=== PATIENT | male | born 1985 | race Caucasian/White ===

== ENCOUNTER 2023-06-08 15:16 | Emergency (ER) | payer OTHER, SELFPAY | END 2023-06-08 19:05 | disposition left against medical advice (07) | PROVIDERS: Emergency Provider Emergency Medicine | DX: S69.92XA Unspecified injury of left wrist, hand and finger(s), initial encounter (principal); X58.XXXA Exposure to other specified factors, initial encounter; Y93.9 Activity, unspecified; Y92.9 Unspecified place or not applicable; Y99.9 Unspecified external cause status ==

== ENCOUNTER 2023-09-28 14:30 | Emergency (ER) | payer OTHER, SELFPAY ==
--- NOTE | ~2023-09-28 | CT_ITS ---
EXAMINATION: CT head/brain wo IV con CT facial bones wo IV con INDICATION INFORMATION: ?sinusitis, intractable R sided headache COMPARISON: None TECHNIQUE: Separate noncontrast CT examinations of the head and maxillofacial bones were performed. Coronal and sagittal images were created for each examination at the technologist workstation. This CT examination was performed using dose optimization techniques as appropriate, variously including the following: * Automated exposure control * Adjustment of mA and/or kV according to patient size (this includes techniques or standardized protocols for targeted exams where dose is matched to indication/reason for exam; i.e. extremities or head) Use of iterative reconstruction technique DLP: 880.27 mGy-cm FINDINGS: HEAD: There is no evidence of acute intracranial hemorrhage or territorial infarction. No abnormal mass-effect or midline shift is seen. Bishop to white matter differentiation is well preserved. No extra-axial fluid collections are identified. No hydrocephalus. No significant volume loss. There is no abnormal attenuation within the brain parenchyma. No acute soft tissue abnormality. No calvarial fracture. The mastoid air cells are well aerated. Small volume cerumen in bilateral external auditory canals. MAXILLOFACIAL: No acute maxillofacial fractures are seen. The mandible, maxilla, pterygoid plates, nasal bones, zygomatic arches, paranasal sinus cho, and bony orbits are intact. The frontal, maxillary, ethmoid, and sphenoid sinuses are well aerated. Periapical lucency along the left maxillary second premolar tooth. The uncinate process is normal bilaterally. The infundibula and middle meati are patent. There is a rightward nasal septal deviation. The mandibular heads are well-seated in the condylar fossa. The orbits demonstrate a normal appearance bilaterally. The globes are intact, and there are no suspicious findings to suggest retrobulbar hemorrhage. CT/CT facial bones wo IV con IMPRESSION: 1. No acute intracranial hemorrhage or territorial infarction. No intracranial masses. 2. Periapical lucency along the left maxillary second premolar tooth which could represent a periapical abscess in the appropriate clinical setting.
--- NOTE | ~2023-09-28 | XR_ITS ---
EXAMINATION: CHEST 2 VIEWS CLINICAL INFORMATION: cough. COMPARISON: 07/17/2016. TECHNIQUE: PA and lateral views of the chest obtained. FINDINGS: The lungs are well expanded. No focal infiltrate, effusion, edema, or pneumothorax. Chain staple line in the lateral right upper lobe. Cardiac and mediastinal silhouettes are within normal limits for technique. No acute bony abnormality seen XR/XR chest 2V IMPRESSION: No evidence of acute disease.
[2023-09-28 15:21] VITALS: BP 107/64; PULSE 96; RESP 18; TEMP 37.4; O2SAT 96; BMI 19.4
--- NOTE | 2023-09-28 15:23 | ED.GENADULT ---
HPI - General Adult General Chief complaint: Upper Respiratory Symptoms Stated complaint: Sore throat/Headache/Fever Time Seen by Provider: 09/28/23 16:58 Source: patient, RN notes reviewed and old records reviewed Mode of arrival: ambulatory Limitations: no limitations History of Present Illness HPI narrative: 37-year-old male with no significant past medical history presents to the ED today for evaluation of subjective fevers, myalgias, sore throat, nausea and vomiting x3 days. States he does not typically get headaches. His headache is localized to the right side of his head. Denies vision changes or photophobia. He has been taking Tylenol and ibuprofen at home without relief, last dose at 11 this morning. He took a COVID test at home that was negative. His daughter at home is ill with similar symptoms. Vaccinations are up to date. Denies cough, abdominal pain, flank pain, diarrhea, constipation, dysuria, hematuria. Denies recent travel. Related Data Previous Rx's ?Medication ?Instructions ?Recorded amoxicillin 875 mg-potassium 1 tab PO Q12H 10 days #20 tabs 09/28/23 clavulanate 125 mg tablet naproxen 500 mg tablet 500 mg PO BID PRN pain 7 days #14 09/28/23 tabs Allergies Allergy/AdvReac Type Severity Reaction Status Date / Time pollen extracts [POLLEN] Allergy Mild SNEEZING Verified 09/28/23 15:24 DUST Allergy Mild SNEEZING Uncoded 09/28/23 15:24 Review of Systems Review of Systems: Constitutional: No fever, chills, fatigue, night sweats, weight changes ENT/Mouth: No ear pain, hearing loss, nasal congestion, sinus pain, rhinorrhea, +sore throat Eyes: No eye pain, swelling, redness, vision changes, discharge Cardio: No chest pain, palpitations, SUAZO, orthopnea, peripheral edema Pulm: No SOB, cough, sputum, wheezing, dyspnea, hemoptysis GI: No nausea, vomiting, hematemesis, abdominal pain, diarrhea, constipation, hematochezia, melena : No irregular bleeding, dysuria, frequency, urgency, hesitancy, hematuria, flank pain, urinary flow changes, urinary incontinence or retention MSK: No back pain, neck pain, joint pain, +myalgias Skin: No lesions, rashes Neuro: No weakness, numbness, paresthesias, LOC, dizziness, +headache Psych: No anxiety/panic, depression, SI/HI, AH/VH All other systems reviewed and are negative. [facility] Past Medical History Attestation statement: The following information was validated with the patient. Source: old records reviewed and nursing notes reviewed Social History Social History Advance Directives: No Advance Directives Information Provided: No Physical Exam ED Vital Signs: Vital Signs - 24 hr 09/28/23 15:21 09/28/23 20:20 Temperature 99.4 F 99.4 F Pulse Rate 96 96 Respiratory Rate 18 18 Blood Pressure 107/64 107/67 Pulse Oximetry 96 96 Oxygen Delivery Method Room Air Room Air BMI result Body Mass Index 19.4 Vital signs stable Const General: cooperative, healthy appearing, comfortable and no acute distress Orientation/consciousness: patient oriented x3 Limitations: no limitations HENMT Other: + tenderness with percussion of left maxillary sinus Head: Yes normal to inspection, Yes No palpable skull fracture present, Yes normocephalic, Yes atraumatic, No scalp tenderness and No Temporal artery tenderness present Ears: hearing grossly normal bilaterally, external ears normal, TM's normal bilaterally, EAC's normal, mastoids normal and no periauricular adenopathy Eyes General: appearance normal, both eyes and all related structures Conjunctivae: conjunctivae normal Sclerae: sclerae normal Pupils: Equal, round and reactive pupils present Neck Neck: Yes normal visual inspection, Yes full ROM and Yes no lymphadenopathy Chest Chest palpation & inspection: normal inspection of the chest and normal palpation of entire chest wall Resp Effort & Inspection: normal respiratory effort and able to speak in complete sentences Auscultation: clear to auscultation bilaterally Cardio Rate: regular rate Rhythm: regular rhythm GI Inspection: Yes normal to inspection Palpation (GI): Soft to palpation and nontender General: Yes no CVA tenderness Back/Spine/Pelvis Back: no CVA tenderness Skin General skin exam: no rashes or lesions noted Neuro General: patient oriented x3, gait normal and no focal motor deficits Cranial nerves: Yes Equal, round and reactive pupils present Extrem General: Yes normal to inspection, Yes full ROM and Yes capillary refill normal Course Course Course Narrative: RME: 37 yold male presents to the ED for sore throat, headache, nuasea,coughing, and fever. SARS and Strep ordered 1899-- Patient has tested negative for covid/flu/rsv. CBC without leukocytosis. Chemistry without acute electrolyte abnormality requiring intervention. lipase wnl > unlikely pancreatitis. CXR without infiltrate or consolidation > no pneumonia. > on re-evaluation, patient reports improvement in symptoms after receiving zofran, decadron, and tylenol. he is eating soup. he is stable at the end of my shift. sign out given to my colleague, Buck CHERY pending CT head/facial bones to r/o sinusitis. Reevaluation(s) Reevaluation #1: Head CT facial CT normal. Facial CT shows possible left maxillary premolar periapical abscess. This was discussed with patient. Patient given copy of CT scan and will discharge with antibiotics and informed to follow up with Dentists. Patient not in any distress. Time: 20:00 Medications Administered Discontinued Medications Generic Name Dose Route Start Last Admin Trade Name Freq PRN Reason Stop Dose Admin Acetaminophen 975 mg 09/28/23 17:18 09/28/23 17:35 Acetaminophen 325 Mg Tablet PO 09/28/23 17:19 975 mg ONCE ONE Administration Dexamethasone Sodium Phosphate 10 mg 09/28/23 17:18 09/28/23 17:37 Dexamethasone Sod Phosphate 10 Mg/Ml Vial IVPUSH 09/28/23 17:19 10 mg ONCE ONE Administration Ondansetron HCl 4 mg 09/28/23 17:18 09/28/23 17:35 Ondansetron Odt 4 Mg Tab.Rapdis TRANSLINGU 09/28/23 17:19 4 mg ONCE ONE Administration Medical Decision Making Medical Decision Making [facility] Narrative: 37-year-old male with no significant past medical history presents to the ED today for evaluation of subjective fevers, myalgias, sore throat, nausea and vomiting x3 days. Patient with low-grade temp of 99.9?. Vitals otherwise WNL. He is nontoxic appearing and in NAD. Exam nonfocal. no palpable temoral aa. no scalp tenderness. tenderness with percussion of left maxillary sinus. Skin warm. Posterior oropharynx erythematous, no edema. no tonsillar exudates. uvula midline. Controlling secretions and speaking complete sentences. RRR. Lungs are clear to auscultation bilaterally. No rashes. Abdomen soft, nondistended, nontender to palpation, no rebound tenderness or guarding. Normoactive bowel sounds x4. Differential diagnosis includes headache, migraine, viral syndrome, strep throat, gastroenteritis, sinusitis. Low suspicion for ICH, CVA, GCA, Plan for labs, viral serology, cxr, ct head/facial bones and re-evaluation. Differential Diagnosis Differential Diagnoses: The differential diagnosis associated with the presentation includes As above Admission/Observation Not indicated Lab Data MDM Lab Attestation statement: I reviewed the patient's lab results. As above 09/28/23 18:22 09/28/23 18:22 Labs: Lab Results 09/28/23 09/28/23 Range/Units 15:31 18:22 WBC 10.3 (4.8-10.8) X10*3/uL RBC 4.99 (4.60-5.80) X10*6/uL Hgb 14.0 (14.0-18.0) g/dl Hct 40.3 L (42.0-52.0) % MCV 80.8 (80.0-98.0) fL MCH 28.1 (27.0-33.0) pg MCHC 34.7 (31.0-36.0) g/dl RDW 12.9 (11.0-16.0) % Plt Count 127 L (160-400) X10*3/uL MPV 11.1 (9.4-12.4) fL Immature Gran % (Auto) 0.3 (0.0-0.4) % Neut % (Auto) 84.6 H (45-73) % Lymph % (Auto) 6.3 L (20-40) % [place] % (Auto) 8.5 (2-11) % Eos % (Auto) 0.0 (0-4) % Baso % (Auto) 0.3 (0-2) % Lymph # (Auto) 0.7 L (1.2-4.9) X10*3/uL [place] # (Auto) 0.9 (0.1-1.2) X10*3/uL Eos # (Auto) 0.0 (0.0-0.4) X10*3/uL Baso # (Auto) 0.0 (0.0-0.2) X10*3/uL Abs Immat Gran (auto) 0.03 (0.00-0.03) X10*3/uL Absolute Neuts (auto) 8.7 H (2.0-8.3) x10*3/uL Absolute Nucleated RBC 0.000 (0.0-0.012) X10*3/uL Nucleated RBC % (auto) 0.0 (0.0-0.2) /100WBC Sodium 139 (135-145) mmol/L Potassium 3.8 (3.3-5.1) mmol/L Chloride 104 (96-108) mmol/L Carbon Dioxide 25 (22-29) mmol/L Anion Gap 14 (12-20) BUN 11 (9-16) mg/dL Creatinine 0.96 (0.5-1.4) mg/dL Estim Creat Clear Calc 82.6 Estimated GFR > 60 Random Glucose 125 H (60-115) mg/dL Calcium 9.5 (8.4-10.2) mg/dL Magnesium 1.8 (1.6-2.6) mg/dL Total Bilirubin 1.8 H (0.0-1.0) mg/dL AST 15 (5-37) U/L ALT 12 (0-40) U/L Alkaline Phosphatase 53 (39-117) U/L Total Protein 7.2 (6.5-8.0) g/dL Albumin 4.4 (3.5-5.0) g/dL Lipase 11 (8-78) U/L Influenza Type A (PCR) NEGATIVE (Negative) Influenza Type B (PCR) NEGATIVE (Negative) RSV RNA Qual (PCR) NEGATIVE (Negative) SARS-CoV-2 RNA (RT-PCR) NEGATIVE (Negative) S. pyogenes GrpA CARLOS ALBERTO Negative (Negative) Independent Interpretation I performed an independent interpretation of an: Plain X-Ray and CT Scan Interpretation: Chest x-ray does not demonstrate infiltrate or consolidation, agree with radiologist's interpretation. CT facial bones without air fluid levels noted to maxillary sinuses, agree with radiologist's interpretation. CT head/brain does not demonstrate bleed, agree with radiologist's interpretation. Radiology Impression Discussion of test interpretation with radiology: I have reviewed the radiologist's reading. Radiologist Impression: EXAMINATION: CHEST 2 VIEWS CLINICAL INFORMATION: cough. COMPARISON: 07/17/2016. TECHNIQUE: PA and lateral views of the chest obtained. FINDINGS: The lungs are well expanded. No focal infiltrate, effusion, edema, or pneumothorax. Chain staple line in the lateral right upper lobe. Cardiac and mediastinal silhouettes are within normal limits for technique. No acute bony abnormality seen XR/XR chest 2V IMPRESSION: No evidence of acute disease. EXAMINATION: CT head/brain wo IV con CT facial bones wo IV con INDICATION INFORMATION: ?sinusitis, intractable R sided headache COMPARISON: None TECHNIQUE: Separate noncontrast CT examinations of the head and maxillofacial bones were performed. Coronal and sagittal images were created for each examination at the technologist workstation. This CT examination was performed using dose optimization techniques as appropriate, variously including the following: * Automated exposure control * Adjustment of mA and/or kV according to patient size (this includes techniques or standardized protocols for targeted exams where dose is matched to indication/reason for exam; i.e. extremities or head) Use of iterative reconstruction technique DLP: 880.27 mGy-cm FINDINGS: HEAD: There is no evidence of acute intracranial hemorrhage or territorial infarction. No abnormal mass-effect or midline shift is seen. Bishop to white matter differentiation is well preserved. No extra-axial fluid collections are identified. No hydrocephalus. No significant volume loss. There is no abnormal attenuation within the brain parenchyma. No acute soft tissue abnormality. No calvarial fracture. The mastoid air cells are well aerated. Small volume cerumen in bilateral external auditory canals. MAXILLOFACIAL: No acute maxillofacial fractures are seen. The mandible, maxilla, pterygoid plates, nasal bones, zygomatic arches, paranasal sinus cho, and bony orbits are intact. The frontal, maxillary, ethmoid, and sphenoid sinuses are well aerated. Periapical lucency along the left maxillary second premolar tooth. The uncinate process is normal bilaterally. The infundibula and middle meati are patent. There is a rightward nasal septal deviation. The mandibular heads are well-seated in the condylar fossa. The orbits demonstrate a normal appearance bilaterally. The globes are intact, and there are no suspicious findings to suggest retrobulbar hemorrhage. CT/CT head/brain wo IV con IMPRESSION: 1. No acute intracranial hemorrhage or territorial infarction. No intracranial masses. 2. Periapical lucency along the left maxillary second premolar tooth which could represent a periapical abscess in the appropriate clinical setting. External Record Review External record reviewed: Inpatient record, Office record, Outpatient record, Prior outpatient labs, Prior outpatient radiology, Primary care record and Outside ED record Prescription Management I considered prescription management with: Pain Medication and Antibiotic Social Determinants Patient?s care significantly limited by Social Determinants of Health including: Other Social Determinant of Health Critical Care Time Critical Care Time Critical Care Time: No Discharge Plan Discharge Clinical Impression: Viral infection, Toothache Patient Disposition: Home, Self-Care Instructions: Viral Syndrome (ED), Toothache (ED) Additional Instructions: Head CT came back normal. Facial CT scan shows possible left maxillary 2nd premolar tooth periapical abscess. Recommend follow-up with a dentist. You will be discharged with antibiotics. Return to the ED immediately for any headache, dizziness, chest pain, shortness of breath, drooling, facial swelling, neck swelling, or any other concerning symptoms. Prescriptions: New amoxicillin-pot clavulanate 875-125 mg tablet 1 tab PO Q12H 10 Days Qty: 20 0RF naproxen 500 mg tablet 500 mg PO BID PRN (Reason: pain) 7 Days Qty: 14 0RF Stand Alone Forms: Work/School Release Interventions: ED Discharge Assessment Last Done: 09/28/23 20:20 Discharge Date/Time: 09/28/23 20:21 Print Language: Angolan
[2023-09-28 15:59] LABS: IDNOW Serial# 6674DD1D; Strep A Nucleic Acid Negative (Negative)
[2023-09-28 16:28] LABS: Influenza A PCR NEGATIVE (Negative); Influenza B PCR NEGATIVE (Negative); Resp Syncy Virus RNA Qual PCR NEGATIVE (Negative); SARS COV2 PCR INHOUSE NEGATIVE (Negative)
[2023-09-28] MEDS: Acetaminophen 325 MG TABLET 975 MG PO (17:35)
[2023-09-28] MEDS: Ondansetron ODT 4 MG TAB.RAPDIS TRANSLINGU (17:35)
[2023-09-28] MEDS: dexAMETHasone sod phosphate 10 MG/ML VIAL IVPUSH (17:37)
[2023-09-28 18:26] LABS: MANUAL DIFF FLAG NO
[2023-09-28 18:34] LABS: Basophils Percent Auto 0.3 % (0-2); Hematocrit 40.3 % (42.0-52.0); Imm Gran Abs Auto 0.03 X10*3/uL (0.00-0.03); Imm Gran Pct Auto 0.3 % (0.0-0.4); Lymphocytes Absolute Auto 0.7 X10*3/uL (1.2-4.9); Lymphocytes Percent Auto 6.3 % (20-40); Mean Corpuscular HGB Conc 34.7 g/dl (31.0-36.0); Mean Corpuscular Hemoglobin 28.1 pg (27.0-33.0); Mean Corpuscular Volume 80.8 fL (80.0-98.0); Mean Platelet Volume 11.1 fL (9.4-12.4); Monocytes Absolute Auto 0.9 X10*3/uL (0.1-1.2); Monocytes Percent Auto 8.5 % (2-11); Neutrophils Absolute Auto 8.7 x10*3/uL (2.0-8.3); Neutrophils Percent Auto 84.6 % (45-73); Platelet Count 127 X10*3/uL (160-400); Red Blood Count 4.99 X10*6/uL (4.60-5.80); Red Cell Distribution Width 12.9 % (11.0-16.0); White Blood Count 10.3 X10*3/uL (4.8-10.8)
[2023-09-28 18:43] LABS: Alanine Aminotransferase 12 U/L (0-40); Albumin Level 4.4 g/dL (3.5-5.0); Alkaline Phosphatase 53 U/L (39-117); Anion Gap 14 (12-20); Aspartate Amino Transferase 15 U/L (5-37); Bilirubin Total 1.8 mg/dL (0.0-1.0); Blood Urea Nitrogen 11 mg/dL (9-16); Calcium 9.5 mg/dL (8.4-10.2); Carbon Dioxide 25 mmol/L (22-29); Chloride 104 mmol/L (96-108); Creatinine Clr Calc Pharmacy 82.6; Estimated Glomerular Filt Rate > 60; Glucose Random 125 mg/dL (60-115); Lipase 11 U/L (8-78); Magnesium 1.8 mg/dL (1.6-2.6); Potassium 3.8 mmol/L (3.3-5.1); Sodium 139 mmol/L (135-145); Total Protein 7.2 g/dL (6.5-8.0)
[2023-09-28 20:20] VITALS: BP 107/67; PULSE 96; RESP 18; TEMP 37.4; O2SAT 96
== END 2023-09-28 20:21 | disposition home or self-care (01) ==
PROVIDERS: Physician Assistant; Physician Assistant Medical; Emergency Provider Internal Medicine
DX: B34.9 Viral infection, unspecified (principal); J02.9 Acute pharyngitis, unspecified; R50.9 Fever, unspecified; R51.9 Headache, unspecified; K08.89 Other specified disorders of teeth and supporting structures; R05.9 Cough, unspecified; Z11.52 Encounter for screening for COVID-19; Z20.822 Contact with and (suspected) exposure to COVID-19; Z79.899 Other long term (current) drug therapy
CPT/HCPCS: 0241U; 36415; 70450; 70486; 71046; 80053; 83690; 83735; 85025; 87651; 99283; 99284; J1100

== ENCOUNTER 2024-04-30 18:26 | Emergency (ER) | payer OTHER, SELFPAY ==
[2024-04-30 18:49] VITALS: BP 103/69; PULSE 69; RESP 16; TEMP 36.1; O2SAT 98; BMI 19.4
--- NOTE | 2024-04-30 18:53 | ED_ITS ---
HPI - General Adult General Chief complaint: Skin/Abscess/Foreign Body Stated complaint: Abscess behind L ear Time Seen by Provider: 04/30/24 19:57 Source: patient and family History of Present Illness HPI narrative: 38-year-old male presents for an evaluation of possible abscess behind his left ear. Patient states he had a small pimple there that was present for the past approximately 2-3 days. He reports squeezing this area and has subsequently gotten larger. He denies any fevers chills nausea or vomiting. No headache. No tinnitus. No trauma. Denies any history of similar symptoms. Patient is otherwise feeling well. No history of diabetes. Related Data Previous Rx's ?Medication ?Instructions ?Recorded doxycycline monohydrate 100 mg 100 mg PO BID #20 caps 04/30/24 capsule Allergies Allergy/AdvReac Type Severity Reaction Status Date / Time pollen extracts [POLLEN] Allergy Mild SNEEZING Verified 04/30/24 18:50 DUST Allergy Mild SNEEZING Uncoded 09/28/23 15:24 Review of Systems Constitutional: Constitutional: Denies chills, Denies fever(s) and Denies headache(s) Eyes: Eyes: Denies change in vision and Denies other (No redness.) ENT: Denies headache(s), Denies nasal congestion, Denies nasal discharge and Denies sore throat Cardiovascular: Cardiovascular: Denies chest pain, Denies dyspnea, Denies dyspnea on exertion and Denies orthopnea Respiratory: Respiratory: Denies cough, Denies dyspnea and Denies dyspnea on exertion Integumentary/Breasts: Skin/Breast: Denies rash Neurologic: Denies headache(s) and Denies focal weakness [facility] Past Medical History Attestation statement: The following information was validated with the patient. [facility] Narrative: Denies significant past medical history. Social History Social History Advance Directives: No Advance Directives Information Provided: No Do you have a plan to hurt others: No Plan Physical Exam ED Vital Signs: Vital Signs - 24 hr 04/30/24 18:49 04/30/24 20:04 04/30/24 20:17 Temperature 96.9 F 98.3 F 98.3 F Pulse Rate 69 68 68 Respiratory Rate 16 16 16 Blood Pressure 103/69 101/75 101/75 Pulse Oximetry 98 98 98 Oxygen Delivery Method Room Air Room Air Room Air BMI result Body Mass Index 19.4 Const General: cooperative and no acute distress Neck Other: There is a 0.5 cm soft, mildly tender, mildly erythematous well demarcated lesion to the posterior aspect of the left ear. There is no streaking or discharge. No mastoid tenderness. No lymphadenopathy. Resp Auscultation: clear to auscultation bilaterally Course Course Course Narrative: RME, this is a rapid medical exam performed by Nima Garcia please refer to primary provider for complete H&P- 38-year-old male presents for evaluation of a bump behind his left ear. He reports that has been there for a couple of days. It appears to have a small abscess in the left postauricular region. Procedures Abscess I/D Site: other ( Left postauricular region) Side (if applicable): left Technique: needle aspiration ( 18. Gauge needle was used to aspirate a small amount of purulent material. Firm pressure was used to express additional small amount of material. Patient tolerated procedure without any immediate comp lications.) Medical Decision Making Medical Decision Making MDM Narrative: 38-year-old male with lesion to the left postauricular region. Concerning for sebaceous cyst versus small lipoma. Small amount of purulent material expressed along with firm pressure. Patient placed on antibiotics. Surgical referral provided. Patient expresses understanding of all discharge instructions and has no further questions at this time. No evidence of cellulitis or mastoiditis. He is not septic. referral to surgery for definitive treatment. Differential Diagnosis Differential Diagnoses: The differential diagnosis associated with the presentation includes Abscess Cellulitis Folliculitis Sebaceous cyst Lipoma Discharge Plan Discharge Clinical Impression: Abscess Patient Disposition: Home, Self-Care Instructions: Abscess (ED) Additional Instructions: Warm compresses to the affected area. Doxycycline as directed. Finish all antibiotics. Follow up with surgical referral Watch for worsening signs of infection, severe pain, redness, swelling or any other concern return immediately to the emergency department. Follow-up with your primary care provider. Call this week to schedule a follow-up appointment. Return to the emergency department if you have any worsening of symptoms, or any concerns. Get well soon! Prescriptions: New doxycycline monohydrate 100 mg capsule 100 mg PO BID Qty: 20 0RF Discontinued amoxicillin-pot clavulanate 875-125 mg tablet 1 tab PO Q12H 10 Days Qty: 20 0RF naproxen 500 mg tablet 500 mg PO BID PRN (Reason: pain) 7 Days Qty: 14 0RF Referrals: Benjy Gao MD [Physician] - 2 weeks (sebaceous cyst vs lipoma, L post auricular region) Interventions: ED Discharge Assessment Last Done: 04/30/24 20:17 Discharge Date/Time: 04/30/24 20:17 Print Language: Bermudian
[2024-04-30 20:04] VITALS: BP 101/75; PULSE 68; RESP 16; TEMP 36.8; O2SAT 98
[2024-04-30 20:17] VITALS: BP 101/75; PULSE 68; RESP 16; TEMP 36.8; O2SAT 98
== END 2024-04-30 20:17 | disposition home or self-care (01) ==
PROVIDERS: Emergency Provider Internal Medicine
DX: L02.11 Cutaneous abscess of neck (principal)
CPT/HCPCS: 10160; 99283; 99284

== ENCOUNTER 2024-05-17 09:30 | Outpatient (AMB) | payer OTHER, SELFPAY ==
--- NOTE | 2024-05-17 09:31 | MHC.OFFVIS ---
Vital Signs 05/17/24 09:39 Height 5 ft 6 in Weight 119 lb BMI 19.2 BP 115/58 L Blood Pressure Location Rt brachial Position Sitting Pulse 76 Intake Visit Reasons: sebaceous cyst vs lipoma, L post auricular region) Intake Note: Patient referred after ER visit on 04-30-2024 for abscess on lt postauricular area. Finished Doxycycline course. Patient c/o: growth smaller. Denies pain. Brake Repairer Required: No Accompanied by: Megan Allergies pollen extracts [POLLEN] Allergy (Mild, Verified 05/17/24 09:35) SNEEZING DUST Allergy (Mild, Uncoded 05/17/24 09:35) SNEEZING HPI Comments Details: Patient presents with his significant other. He presents here for evaluation status post a recent ER visit for a left postauricular infected sebaceous cyst. Presents here for follow-up. He has had marked improvement of his symptoms. He would like to eventually get this cyst excised. He has no such lesions elsewhere. He is completing his antibiotic course Chart was reviewed and patient evaluated. [facility] Medical History (Updated 05/17/24 @ 09:39 by CARMITA Mccoy) Lung collapse Family History (Updated 05/17/24 @ 09:38 by CARMITA Mccoy) Paternal Uncle Colon cancer Social History (Updated 05/17/24 @ 09:38 by CARMITA Mccoy) Alcohol intake: current Alcohol intake frequency: holidays/special occasions only Patient Tobacco Use Status: Former Tobacco user Physical Exam Vital Signs: Last Vital Signs Pulse 76 05/17/24 09:39 BP 115/58 L 05/17/24 09:39 BMI result Body Mass Index 19.2 HEENT Other: Patient was a roughly 3 x 2 cm left postauricular resolving infected sebaceous cyst. No abscess at this time. Patient states it is improving. Assessment & Plan Assessment & Plan (1) Infected sebaceous cyst: Code(s): L72.3 - Sebaceous cyst; L08.9 - Local infection of the skin and subcutaneous tissue, unspecified Category: Surgical Plan Current plan is to allow for complete resolution of the in flames/infective process and then arrange for excision of this cyst in the office on a day which is convenient for him. Arrangements were made for this. All questions answered. Medications: Discontinued doxycycline monohydrate Discontinued Reason: Patient Completed Course 100 mg PO BID 20 caps 0RF Coding Level of Care Code New Pt Level 4 (32897) Diagnoses Infected sebaceous cyst L72.3; L08.9
[2024-05-17 09:39] VITALS: BP 115/58; PULSE 76; BMI 19.2
== END 2024-05-17 09:46 | disposition home or self-care (01) ==
PROVIDERS: Visit Provider Surgery
DX: L72.3 Sebaceous cyst (principal); L08.9 Local infection of the skin and subcutaneous tissue, unspecified
CPT/HCPCS: 99204

== ENCOUNTER → 2024-05-17 09:30 | Outpatient (BNVA) | payer OTHER, SELFPAY | PROVIDERS: Visit Provider Surgery | DX: L72.3 Sebaceous cyst (principal) | CPT/HCPCS: 99202 ==

== ENCOUNTER 2024-05-31 09:24 | Outpatient (AMB) | payer OTHER, SELFPAY ==
[2024-05-31 09:30] VITALS: BP 104/59; PULSE 60; BMI 19.2
--- NOTE | 2024-05-31 09:30 | MHC.OFFVIS ---
Vital Signs 05/31/24 09:30 Height 5 ft 6 in Weight 119 lb BMI 19.2 BP 104/59 L Blood Pressure Location Lt brachial Position Sitting Pulse 60 Intake Visit Reasons: Excision sebaceous cyst Intake Note: Patient here for cyst excision on lt postauricular site. Penciller Required: No Accompanied by: Family/Other Allergies pollen extracts [POLLEN] Allergy (Mild, Verified 05/31/24 09:29) SNEEZING DUST Allergy (Mild, Uncoded 05/17/24 09:35) SNEEZING Medication List - Last Reconciled 05/31/24 by Benjy Gao MD No Known Home Meds HPI Comments Details: Patient presents for excision of his left postauricular cyst. Risks, benefits, alternatives of procedure reviewed with the patient included but not limited to bleeding, infection, recurrence, numbness, pain, scarring the patient wished to proceed. All questions answered. [facility] Medical History (Updated 05/17/24 @ 09:39 by CARMITA Mccoy) Lung collapse Family History Paternal Uncle Colon cancer Social History Alcohol intake: current Alcohol intake frequency: holidays/special occasions only Patient Tobacco Use Status: Former Tobacco user Physical Exam Vital Signs: Last Vital Signs Pulse 60 05/31/24 09:30 BP 104/59 L 05/31/24 09:30 BMI result Body Mass Index 19.2 Office Procedures Excision Details: After appropriate positioning, patient underwent 1% lidocaine Betadine prep of the postauricular area. A longitudinal by elliptical incision encompassing the cyst which measured roughly 3 x 2 cm. Specimen sent to pathology. Wound was irrigated, secured hemostasis, and closed using running subcuticular 3-0 Vicryl suture followed by Steri-Strips and sterile dressings. Patient tolerated procedure well Procedure code (CPT) selection complete Office Meds lidocaine 1 %-epinephrine 1:100,000 injection solution Performing Provider: Benjy Gao MD Performing Location: [facility] [place] General Surgeons Administered by: Benjy Gao MD on 05/31/24 10:06 Dose Route Admin Location Dispensed Lot Number Expiration Date [facility] [employer] Range Tender 10 mL Infiltration 10 mL Assessment & Plan Assessment & Plan (1) Sebaceous cyst: Code(s): L72.3 - Sebaceous cyst Category: Surgical Plan: Patient was been given local instructions including ice to the wound periodically, may shower in 2 days, Tylenol and Motrin p.r.n. pain, no strenuous activities. All questions answered. Patient will see me in roughly 1 week's time for follow-up or p.r.n.. All questions answered. Orders: Orders AMB Excision Today L72.3 - Sebaceous cyst Coding Level of Care Code Est Pt Level 5 (53802) Diagnoses Sebaceous cyst L72.3
== END 2024-05-31 09:48 | disposition home or self-care (01) ==
PROVIDERS: Visit Provider Surgery
DX: L72.0 Epidermal cyst (principal)
CPT/HCPCS: 11441

== ENCOUNTER 2024-05-31 09:24 | Outpatient (REF) | payer OTHER, SELFPAY | END 2024-05-31 09:25 | disposition home or self-care (01) | LOC: HO.LNP 09:24 | PROVIDERS: Visit Provider Surgery | DX: L72.3 Sebaceous cyst (principal) | CPT/HCPCS: 11441; 88304 ==

== ENCOUNTER 2024-06-07 10:35 | Outpatient (AMB) | payer OTHER, SELFPAY ==
--- NOTE | 2024-06-07 10:36 | MHC.OFFVIS ---
Intake Visit Reasons: s/p Excision sebaceous cyst Intake Note: Patient here s/p 1wk excision of cyst on lt postauricular. Reports incision healing well. Patient c/o: steri strips in place. 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 He has no wound issues. Pathology is benign [facility] Medical History (Updated 05/17/24 @ 09:39 by CARMITA Mccoy) Lung collapse Surgical History (Updated 06/07/24 @ 10:47 by Benjy Gao MD) Sebaceous cyst (05/31/24) Family History Paternal Uncle Colon cancer Social History Alcohol intake: current Alcohol intake frequency: holidays/special occasions only Patient Tobacco Use Status: Former Tobacco user Physical Exam Neck Other: Left postauricular incisions clean dry and intact healing well Assessment & Plan Assessment & Plan (1) Encounter for postoperative wound check: Code(s): Z48.89 - Encounter for other specified surgical aftercare Category: Surgical Plan Patient was been given local instructions and will otherwise follow-up p.r.n.. It was told that the sutures will take 4-6 weeks to resolve and then the incision was softened. No acute issues at this time. All questions answered. Coding Level of Care Code Global (94151) Diagnoses Encounter for postoperative wound check Z48.89
== END 2024-06-07 10:40 | disposition home or self-care (01) ==
PROVIDERS: Visit Provider Surgery
DX: Z48.89 Encounter for other specified surgical aftercare (principal)
CPT/HCPCS: 99024

== ENCOUNTER → 2024-06-07 10:35 | Outpatient (BNVA) | payer OTHER, SELFPAY | PROVIDERS: Visit Provider Surgery | DX: Z48.89 Encounter for other specified surgical aftercare (principal); L72.3 Sebaceous cyst | CPT/HCPCS: 99212 ==

== ENCOUNTER 2024-10-12 09:49 | Outpatient (AMB) | payer OTHER, SELFPAY ==
--- NOTE | 2024-10-12 10:32 | A.OFFPC_ITS ---
Vital Signs 10/12/24 10:40 Height 5 ft 6 in Weight 125 lb BMI 20.2 BP 108/68 Blood Pressure Location Rt brachial Position Sitting Respiration 14 Pulse 57 Pulse Source Pulse Oximeter Temp 97.6 F Temp Source Oral Pulse Oximetry (%) 97 Oxygen Delivery Method Room Air Intake Visit Reasons: New Appt New Patient requesitng an PE Intake Note: new patient scheduled to establish care with pcp Addiction Treatment Counselor Required: No Allergies pollen extracts [POLLEN] Allergy (Mild, Verified 10/12/24 10:38) SNEEZING DUST Allergy (Mild, Uncoded 06/07/24 10:38) SNEEZING Medication List - Last Reconciled 10/12/24 by Mauricio Wills MD No Known Home Meds Tobacco use date assessed: 10/12/24 Dental Screening Dental Screen Date: 10/12/24 Did you have a dental visit in the last 12 months?: Yes Did you have a dental problem in the last 6 months where you did not have access to dental care?: No Was dental information given to patient?: No HPI New Appt New Patient requesitng an PE HPI Details New Patient? ?? Prior PCP:? Unknown Last office visit/CPE:? 5 yrs ago Acute issue(s):? Low back pain ?? PMHx:? Collapsed lung x 2. 2007 & 2014. Asthma SurgHx:? Pleurodesis, Abscess at L Mastoid. FHx:? Mom: HTN. Sister: HTN, Heart Disease. Dad: EtOH, Liver dz. Uncle: Colon CA. SocHx:? Quit Cigs 1 yr ago, EtOH: Occassional 1-2 dr. SEAMAN None. No drugs PFSH Medical History Asthma Lung collapse Surgical History Sebaceous cyst (05/31/24) Family History Paternal Uncle Colon cancer Mother High blood pressure Paternal Grandmother Asthma Brain tumor Maternal Grandmother Skin cancer Paternal Grandfather Brain tumor Father Alcoholism Social History Housing: Apartment Alcohol intake: current Alcohol intake frequency: holidays/special occasions only Patient Tobacco Use Status: Former Tobacco user e-Cigarette/Vaping Use: Currently Using Second Hand Smoke Exposure: No service: No Current occupational status: employed Current occupation: business intelligence analyst Current occupational exposures/hazards: No Cognitive needs: No Hearing needs: No Vision needs: No Questionnaire PHQ-9 Over the last 2 weeks, how often have you been bothered by any of the following problems? 1. Little interest or pleasure in doing things: not at all 2. Feeling down, depressed, or hopeless: not at all 3. Trouble falling or staying asleep, or sleeping too much: not at all 4. Feeling tired or having little energy: not at all 5. Poor appetite or overeating: not at all 6. Feeling bad about yourself - or that you are a failure or have let yourself or your family down: not at all 7. Trouble concentrating on things, such as reading the newspaper or watching television: not at all 8. Moving or speaking so slowly that other people could have noticed. Or the opposite - being so fidgety or restless that you have been moving around a lot more than usual: not at all 9. Thoughts that you would be better off or of hurting yourself in some way: not at all Total score: 0 Depression Screening Interpretation: Negative Depression Screening Done: Yes 36006 - PHQ-9 Billing: Yes Source: Developed by Drs. Collins De La Fuente, Brigitte Paz, Raphael Arteaga and colleagues, with an educational chana from [employer]. Thrive Questionnaire Date Thrive assessed: 10/12/24 I am a: Patient What is your living situation today?: I have a steady place to live Within the past 12 months, did the food you bought not last and you didn't have the money to get more?: Never true Within the past 12 months, did you worry whether your food would run out before you got money to buy more?: Never true Do you have trouble paying for medicines?: No Do you have trouble getting transportation to medical appointments?: No Do you have trouble paying your heating and electricity bill?: No Do you have trouble taking care of your child, family member or friend?: No Do you have trouble with day-to-day activities such as bathing, preparing meals, shopping, managing finances, etc.?: No Are you currently unemployed and looking for a job?: No Are you interested in more education?: No Please select the resources that you would like help with: None Currently or been in a relationship where the following occur: No concerns reported THRIVE Score: 0 AUDIT C Alcohol Use Questionnaire (AUDIT-C) 1. How often do you have a drink containing alcohol?: Never 3. How often do you have six or more drinks on one occasion?: Never Total Score: 0 Score Reviewed/Action Taken: Yes RONA-7 AMB Questionnaire RONA-7 Date RONA - 7 assessed: 10/12/24 Feeling nervous, anxious, or on edge: 0 = Not at all Not being able to stop or control worryin = Not at all Worrying too much about different things: 0 = Not at all Trouble relaxin = Not at all Being so restless that it is hard to sit still: 0 = Not at all Becoming easily annoyed or irritable: 0 = Not at all Feeling afraid as if something awful might happen: 0 = Not at all Total RONA-7 score (0-4 normal; 5-9 mild; 10-14 moderate; 15-21 severe): 0 Source: Developed by Drs. Collins De La Fuente, Brigitte Paz, Raphael Arteaga and colleagues, with an educational chana from [employer]. RONA-7 Assessment Billing RONA-7 Assessment Tool: RONA-7 Assessment 90060 Review of Systems Const Denies chills, Denies fatigue, Denies fever(s), Denies headache(s) and Denies weakness ENT Denies dizziness and Denies headache(s) Card Denies chest pain, Denies lightheadedness, Denies dyspnea and Denies other (Palpitations) Resp Denies cough, Denies dyspnea, Denies wheezing and Denies other ( shortness of breath) Musc Denies numbness and Denies tingling Neuro Denies dizziness, Denies headache(s), Denies numbness, Denies tingling, Denies paresthesias and Denies weakness Psych Denies anxiety and Denies depression Endo Denies fatigue Aller/Immun Denies wheezing Physical exam (Primary Care) Vital Signs: Last Vital Signs Temp 97.6 F 10/12/24 10:40 Pulse 57 10/12/24 10:40 Resp 14 05/06/25 10:40 BP 108/68 10/12/24 10:40 Pulse Ox 97 10/12/24 10:40 Oxygen Delivery Method Room Air 10/12/24 10:40 BMI result Body Mass Index 20.2 Tobacco/Smoking Status: Tobacco use Status Tobacco use date assessed 10/12/24 10/12/24 10:43 Patient Tobacco Use Status Former Tobacco user 10/12/24 10:35 e-Cigarette/Vaping Use Currently Using 10/12/24 10:43 PHQ-9: PHQ-9 Score PHQ-9: Total score 0 10/12/24 10:35 Depression Screening Interpretation: Negative Thrive Assessment: Date of Thrive Assessment Date Thrive assessed 10/12/24 10/12/24 10:35 Currently or been in a relationship where the following occur: No concerns reported Const General: no acute distress and well developed Nutritional Appearance: well nourished Orientation/consciousness: patient oriented x3 HENMT Head: Yes normocephalic and Yes atraumatic Eyes General: appearance normal, both eyes and all related structures Pupils: Equal, round and reactive pupils present EOM: EOMs intact bilaterally Resp Effort & Inspection: normal respiratory effort Auscultation: clear to auscultation bilaterally Cardio Rate: regular rate Rhythm: regular rhythm Heart sounds: S1 normal heart sound present, S2 normal heart sound present, no gallops, no murmurs and no rubs Neuro General: patient oriented x3 and gait normal Cranial nerves: Yes Equal, round and reactive pupils present Psych Affect: normal affect Coding Level of Care Code New Pt Level 3 (99997) Diagnoses Back pain M54.9 Lung collapse J98.19 Asthma J45.909 Laboratory exam ordered as part of routine general medical examination Z00.00 Additional Codes RONA-7 Assessment Billing - RONA-7 Assessment Tool: RONA-7 Assessment 98406 ([id number]) PHQ-9 - 02261 - PHQ-9 Billing: Yes ([id number]) Assessment & Plan Assessment & Plan (1) Back pain: Code(s): M54.9 - Dorsalgia, unspecified Category: Medical Plan: Lower?back?pain?particularly?at?SI?joints. Start?naproxen?and?use?ice/heat Start?physical?therapy Check?x-rays Will?review?at?next?visit. (2) Lung collapse: Comment: both lungs~ [facility] Code(s): J98.19 - Other pulmonary collapse Category: Medical Plan: Pneumothorax?x2?in?2007?and?2014. S/p?pleurodesis (3) Asthma: Code(s): J45.909 - Unspecified asthma, uncomplicated Category: Medical Plan: ProAir & Symbicort. Claritin Trigger: Illnesses, Allegies. Continue?above?medications Patient?requests?referral?to?pulmonology-referred (4) Laboratory exam ordered as part of routine general medical examination: Code(s): Z00.00 - Encounter for general adult medical examination without abnormal findings Category: Medical Plan: Check?labs Orders: Orders Comprehensive [place]. Panel Fast Today Z00.00 - Encounter for general adult medical examination without abnormal findings TSH reflex Free T4 Today Z00.00 - Encounter for general adult medical examination without abnormal findings XR lumbar spine 2-3V Today M54.9 - Dorsalgia, unspecified Microalbumin, Random (w Creat) Today I10 - Essential (primary) hypertension Lipid Panel Today Z00.00 - Encounter for general adult medical examination wit hout abnormal findings UA CC w/rflx Micro + Cult Today Z00.00 - Encounter for general adult medical examination without abnormal findings PT Evaluation and Treatment Today M54.9 - Dorsalgia, unspecified Referrals Pulmonology Referral J45.909 - Unspecified asthma, uncomplicated Medications: New budesonide-formoterol 160-4.5 mcg/actuation (Symbicort) 1 inh inhalation BID 30 days 10.2 grams 3RF J45.909 - Unspecified asthma, uncomplicated naproxen 500 mg PO BID 30 days PRN 60 tabs 2RF pain albuterol sulfate 90 mcg/actuation (Proair Digihaler) 2 inhalations inhalation Q4-6H 30 days PRN 1 ea 4RF shortness of breath or wheezing J45.909 - Unspecified asthma, uncomplicated
[2024-10-12 10:40] VITALS: BP 108/68; PULSE 57; RESP 14; TEMP 36.4; O2SAT 97; BMI 20.2
== END 2024-10-12 11:17 | disposition home or self-care (01) ==
LOC: HO.HMCFM 09:49
PROVIDERS: Visit Provider Family Medicine
DX: M54.9 Dorsalgia, unspecified (principal); J98.19 Other pulmonary collapse; J45.909 Unspecified asthma, uncomplicated; Z00.00 Encounter for general adult medical examination without abnormal findings

== ENCOUNTER → 2024-10-12 09:49 | Outpatient (BNVA) | payer OTHER, SELFPAY | PROVIDERS: Visit Provider Family Medicine | DX: Z00.00 Encounter for general adult medical examination without abnormal findings (principal); M54.50 Low back pain, unspecified; J98.19 Other pulmonary collapse; J45.909 Unspecified asthma, uncomplicated | CPT/HCPCS: 96127; 99202 ==

== ENCOUNTER 2024-10-13 09:30 | Outpatient (REF) | payer OTHER, SELFPAY ==
--- NOTE | ~2024-10-13 | XR_ITS ---
EXAMINATION: XR LUMBOSACRAL SPINE CLINICAL INFORMATION: M54.9 - Dorsalgia, unspecified COMPARISON: None available. TECHNIQUE: Three views of the lumbosacral spine. FINDINGS: Decreased intervertebral disc height head L5-S1. No acute cortical disruption or malalignment. No lytic or blastic lesions. Prominent transverse processes at L5 abutting the S1. XR/XR lumbar spine 2-3V IMPRESSION: No acute fracture or listhesis. Electronically signed by: Chato De La Torre MD 10/13/2024 10:23 AM EDT
[2024-10-13 11:13] LABS: Alanine Aminotransferase 16 U/L (0-40); Albumin Level 4.6 g/dL (3.5-5.0); Alkaline Phosphatase 52 U/L (39-117); Anion Gap 10 (12-20); Aspartate Amino Transferase 21 U/L (5-37); Bilirubin Total 1.1 mg/dL (0.0-1.0); Blood Urea Nitrogen 17 mg/dL (9-16); Calcium 9.6 mg/dL (8.4-10.2); Carbon Dioxide 27 mmol/L (22-29); Chloride 107 mmol/L (96-108); Cholesterol 148 mg/dL (<200); Estimated Glomerular Filt Rate > 60; Glucose Fasting 87 mg/dL (60-99); HDL Cholesterol 42 mg/dL (>40); LDL Cholesterol Calculated 91 mg/dL (<100); Potassium 4.1 mmol/L (3.3-5.1); Sodium 140 mmol/L (135-145); Total Protein 7.1 g/dL (6.5-8.0); Triglycerides 79 mg/dL (<150)
[2024-10-13 11:19] LABS: TSH reflex Free T4 1.72 uIU/mL (0.32-4.0)
[2024-10-13 12:06] LABS: Appearance Urine Clear; Color Urine Yellow; Glucose Urine UA Negative (Negative); Leukocyte Esterase Urine Negative (Negative); Nitrite Urine Negative (Negative); Specific Gravity - Urine >= 1.030 (1.005-1.025); Urine Blood Negative (Negative); Urine Ketones Negative (Negative); Urine Protein Negative (Neg-Trace)
[2024-10-13 12:44] LABS: Creatinine Urine 253.06 mg/dL; Microalbum/Creatinine Ratio Ur 2.7 ug/mg cr (<30)
== END 2024-10-13 09:31 | disposition home or self-care (01) ==
LOC: HO.LAB 09:30
PROVIDERS: PCP Family Medicine; Visit Provider Family Medicine
DX: Z00.00 Encounter for general adult medical examination without abnormal findings (principal); I10 Essential (primary) hypertension; M54.9 Dorsalgia, unspecified
CPT/HCPCS: 36415; 72100; 80053; 80061; 81003; 82043; 82570; 84443

== ENCOUNTER → 2024-10-13 09:44 | Outpatient (BNV) | payer OTHER, SELFPAY | PROVIDERS: PCP Family Medicine; Visit Provider Radiology Diagnostic Radiology | DX: M54.50 Low back pain, unspecified (principal) | CPT/HCPCS: 72100 ==

== ENCOUNTER 2024-10-28 09:25 | Outpatient (RCR) | payer OTHER, SELFPAY ==
--- NOTE | 2024-10-29 17:25 | MHC.PT.EP ---
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 Pt is deemed an appropriate candidate to receive skilled PT services to address their physical impairments in order to improve their functional ability. Frequency and Duration: The patient will be seen 2 x/ wk x 3 wks. Short Term Goals: Initiate home program. I with lifting mechanics. Mcc Goals: I with home program. Pt will improve Nishant outcome by at least 9 points. Pt will reports able to walk long distances with managed pain. Pt will no longer be TTP of R lower back. Treatment Plan: Modalities to reduce pain, spasms and effusion. Manual therapy to restore motion and function. Therapeutic exercise to improve strength and flexibility. Neuromuscular re-education for posture and balance. Therapeutic activities to return to functional activities of daily living. Electronically signed by: Brandyn Mcghee PT Please sign and return to therapist. Thank you for your referral.
--- NOTE | 2025-02-08 10:55 | MHC.PT.DC ---
[facility] [place] Office [place] Office [place] [facility] [address] [place] [address] [facility] [phone] F: [phone] F: [phone] F: [phone] F: [phone] Physical Therapy Discharge Report Diagnosis: Back Pain Date of Surgery: Date of Evaluation: 10/28/24 Date of Discharge: 02/08/25 Treatments to Date: 1 Cancellations to Date: 4 No Shows to Date: Discharge Status: Patient Elected to Stop Discharge Summary: 1 Electronically signed by: Brandyn Mcghee PT Please sign and return to therapist. Thank you for your referral.
== END 2025-02-08 10:55 | disposition home or self-care (01) ==
LOC: HO.PT 09:25
PROVIDERS: PCP Family Medicine; Visit Provider Family Medicine
DX: M54.9 Dorsalgia, unspecified (principal)
CPT/HCPCS: 97110; 97161

== ENCOUNTER 2024-12-24 12:45 | Emergency (ER) | payer OTHER, SELFPAY ==
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
[2024-12-24 12:58] VITALS: BP 99/73; PULSE 59; RESP 16; TEMP 36.7; O2SAT 97; BMI 15.8
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
[2024-12-24 15:07] VITALS: BP 95/60; PULSE 52; RESP 16; TEMP 36.3; O2SAT 99
[2024-12-24 16:39] VITALS: BP 99/58; PULSE 72; RESP 16; TEMP 36.4; O2SAT 97
[2024-12-24 17:19] VITALS: BP 99/58; PULSE 72; RESP 16; TEMP 36.4; O2SAT 97
== END 2024-12-24 17:20 | disposition home or self-care (01) ==
PROVIDERS: Emergency Provider Emergency Medicine; PCP Family Medicine
DX: Z04.1 Encounter for examination and observation following transport accident (principal); M54.2 Cervicalgia; M54.6 Pain in thoracic spine; M54.16 Radiculopathy, lumbar region
CPT/HCPCS: 70450; 72072; 72100; 72125; 96372; 99284; J1885

== ENCOUNTER → 2024-12-24 13:02 | Outpatient (BNV) | payer OTHER, SELFPAY | PROVIDERS: Emergency Provider Emergency Medicine; PCP Family Medicine; Visit Provider Radiology Diagnostic Radiology | DX: M54.2 Cervicalgia (principal); S09.90XA Unspecified injury of head, initial encounter; M54.50 Low back pain, unspecified; M54.6 Pain in thoracic spine; V89.2XXA Person injured in unspecified motor-vehicle accident, traffic, initial encounter | CPT/HCPCS: 70450; 72125 ==

== ENCOUNTER → 2025-02-09 11:55 | Outpatient (BNVA) | payer OTHER, SELFPAY | PROVIDERS: Visit Provider Family Medicine | DX: Z00.00 Encounter for general adult medical examination without abnormal findings (principal) | CPT/HCPCS: 96127 ==

== ENCOUNTER 2025-03-03 12:45 | Outpatient (AMB) | payer OTHER, SELFPAY ==
--- NOTE | 2025-03-03 12:52 | A.OFFPC_ITS ---
Vital Signs 03/03/25 12:53 Height 5 ft 5.94 in Weight 120 lb 6 oz BMI 19.5 BP 120/64 Blood Pressure Location Lt brachial Position Sitting Pulse 75 Pulse Source Pulse Oximeter Temp 97.1 F Temp Source Temporal Artery Scan Pulse Oximetry (%) 98 Oxygen Delivery Method Room Air Intake Visit Reasons: AJ from Chuck Intake Note: Patient is here for AJ from Dr Wills. 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 Protective Service: Present Accompanied by: Spouse Allergies pollen extracts (POLLEN) Allergy (Mild, Verified 03/03/25 12:53) SNEEZING DUST Allergy (Mild, Uncoded 03/03/25 12:53) SNEEZING Medication List - Last Reconciled 03/03/25 by Lupe Mancilla MD budesonide-formoterol 160-4.5 mcg/actuation (Symbicort) 1 inh inhalation BID 30 days cyclobenzaprine 10 mg PO TID PRN naproxen 500 mg PO BID PRN Tobacco use date assessed: 03/03/25 Dental Screening Dental Screen Date: 02/09/25 HPI HPI Comments History of Present Illness Details The patient is a 39-year-old male presenting for a physical examination and management of chronic conditions. The patient reports experiencing back pain, which is associated with known compression fractures at T5 and T9. He was informed about these fractures previously, but the exact cause remains unclear. The back pain has been persistent, and he uses naproxen as needed for pain management. The patient also experiences headaches, which he describes as possibly migraines, accompanied by nausea and photophobia. He does not take any specific medication for headaches but finds some relief with lgvc-anf-zuobdpp medications like Excedrin. He has a history of asthma, which has been more prominent since experiencing two episodes of lung collapse, the first occurring in 2007. He uses an albuterol inhaler as needed for asthma management. The patient reports allergies, which he manages with qdvw-ucq-yzgiudf medications. He has not identified specific triggers for his allergies. Additionally, he reports knee pain, which has been persistent, but he has not undergone recent imaging for this issue. [facility] Medical History (Updated 03/03/25 @ 13:47 by Lupe Mancilla MD) Asthma Lung collapse Surgical History Sebaceous cyst (05/31/24) Family History Paternal Uncle Colon cancer Mother High blood pressure Paternal Grandmother Asthma Brain tumor Maternal Grandmother Skin cancer Paternal Grandfather Brain tumor Father Alcoholism Social History Housing: Apartment Alcohol intake: current Alcohol intake frequency: holidays/special occasions only Patient Tobacco Use Status: Former Tobacco user e-Cigarette/Vaping Use: Currently Using Second Hand Smoke Exposure: Yes service: No Current occupational status: employed Current occupation: [employer] developer Current occupational exposures/hazards: No Cognitive needs: No Hearing needs: No Vision needs: No Questionnaire Thrive Questionnaire Date Thrive assessed: 10/05/24 I am a: Patient What is your living situation today?: I have a steady place to live Within the past 12 months, did the food you bought not last and you didn't have the money to get more?: Never true Within the past 12 months, did you worry whether your food would run out before you got money to buy more?: Never true Do you have trouble paying for medicines?: No Do you have trouble getting transportation to medical appointments?: No Do you have trouble paying your heating and electricity bill?: No Do you have trouble taking care of your child, family member or friend?: No Do you have trouble with day-to-day activities such as bathing, preparing meals, shopping, managing finances, etc.?: No Are you currently unemployed and looking for a job?: No Are you interested in more education?: No Please select the resources that you would like help with: None Currently or been in a relationship where the following occur: No concerns reported THRIVE Score: 0 RONA-7 AMB Questionnaire RONA-7 Date RONA - 7 assessed: 02/09/25 Source: Developed by Drs. Collins De La Fuente, Brigitte Paz, Raphael Arteaga and colleagues, with an educational chana from [employer]. Review of Systems Const Details: Positives besides what was mentioned in HPI are in BOLD Constitutional: No Weight Change, No Fever, No Chills, No Night Sweats, No Fatigue, No Malaise ENT/Mouth: No Hearing Changes, No Ear Pain, No Nasal Congestion, No Sinus Pain, No Hoarseness, No sore throat, No Rhinorrhea, No Swallowing Difficulty Eyes: No Eye Pain, No Swelling, No Redness, No Foreign Body, No Discharge, No Vision Changes Cardiovascular: No Chest Pain, No SOB, No PND, No Dyspnea on Exertion, No Orthopnea, No Claudication, No Edema, No Palpitations Respiratory: No Cough, No Sputum, No Wheezing, No Smoke Exposure, No Dyspnea Gastrointestinal: No Nausea, No Vomiting, No Diarrhea, No Constipation, No Pain, No Heartburn, No Anorexia, No Dysphagia, No Hematochezia, No Melena, No Flatulence, No Jaundice Genitourinary: No Dysmenorrhea, No DUB, No Dyspareunia, No Dysuria, No Urinary Frequency, No Hematuria, No Urinary Incontinence, No Urgency, No Flank Pain, No Urinary Flow Changes, No Hesitancy Musculoskeletal: No Arthralgias, No Myalgias, No Joint Swelling, No Joint Stiffness, No Back Pain, No Neck Pain, No Injury History Skin: No Skin Lesions, No Pruritis, No Hair Changes, No Breast/Skin Changes, No Nipple Discharge Neuro: No Weakness, No Numbness, No Paresthesias, No Loss of Consciousness, No Syncope, No Dizziness, No Headache, No Coordination Changes, No Recent Falls Psych: No Anxiety/Panic, No Depression, No Insomnia, No Personality Changes, No Delusions, No Rumination, No SI/HI/AH/VH, No Social Issues, No Memory Changes, No Violence/Abuse Hx., No Eating Concerns Heme/Lymph: No Bruising, No Bleeding, No Transfusions History, No Lymphadenopathy Endocrine: No Polyuria, No Polydipsia, No Temperature Intolerance Physical exam (Primary Care) Vital Signs: Last Vital Signs Temp 97.1 F 03/03/25 12:53 Pulse 75 03/03/25 12:53 BP 120/64 03/03/25 12:53 Pulse Ox 98 03/03/25 12:53 Oxygen Delivery Method Room Air 03/03/25 12:53 BMI result Body Mass Index 19.5 Tobacco/Smoking Status: Tobacco use Status Tobacco use date assessed 03/03/25 03/03/25 12:58 Patient Tobacco Use Status Former Tobacco user 03/03/25 12:58 e-Cigarette/Vaping Use Currently Using 03/03/25 12:58 Thrive Assessment: Date of Thrive Assessment Date Thrive assessed 10/05/24 03/03/25 12:58 Currently or been in a relationship where the following occur: No concerns reported Const Other: Pertinent findings are in BOLD GENERAL APPEARANCE NAD, activity normal for age, well developed/ well nourished, no cyanosis, pallor, or diaphoresis. EYES lids/conjunctiva normal. EARS/NOSE/THROAT Mucous membranes moist, nares normal, lips/teeth normal uvula midline without oral pharyngeal erythema, ex udate or swelling TMs normal bilaterally. No lymphangitis/lymphedema. HEAD/NECK normocephalic atraumatic, no facial trauma, neck is supple. RESPIRATORY respiratory effort normal, speaks in full sentences, no tripod position, no accessory muscle use. Lungs clear to auscultation without rhonchi, wheezes, rales CARDIAC Regular rate and rhythm, no edema. ABDOMINAL Soft, ND/NT. No evidence of fluid wave. No pulsatile masses on exam, rebound tenderness, Rojas sign or pain over Mcburney's point. MUSCLES/EXTREMITIES No abnormal range of motion, no swelling. SKIN Warm, pink and dry. No rashes, dermatoses, petechiae or lesions. NEUROLOGICAL Speech is clear and appropriate. Normal level of consciousness. Gait and coordination are normal. 5/5 strength in all extremities. PSYCH Normal mood and affect. Judgement/competence is appropriate Immunizations Tenivac (PF) 5 Lf unit-2 Lf unit/0.5 mL intramuscular suspension Performing Provider: Lupe Mancilla MD [place] [place] [facility] Administered by: Michelle Agustin CMA on 03/03/25 13:30 Dose Route Admin Location Dispensed Lot Number Expiration Date [facility] Stenotypist 0.5 mL IM Left Deltoid 0.5 mL [id number] 09/07/26 88031-009-09 [employer] Total Dispensed Waste 0.5 mL 0 % VIS Given Date VIS Provided VIS Publication Date 03/03/25 Single Vaccine 21 Eligibility Eligibility Date Funding Source Not [facility] Eligible 03/03/25 Private Coding Level of Care Code Est Pt Prev Care 18-39y([id number]) Diagnoses Lung collapse J98.19 Asthma J45.909 Back pain M54.9 Healthcare maintenance Z00.00 Migraine G43.909 Knee pain M25.569 Allergy T78.40XA Thrombocytopenia D69.6 Assessment & Plan Assessment & Plan (1) Lung collapse: Comment: both lungs~ [facility] Code(s): J98.19 - Other pulmonary collapse Category: Medical Plan: Pulmonolgy referral to check if anything is needed. (2) Asthma: Code(s): J45.909 - Unspecified asthma, uncomplicated Category: Medical Plan: Continue symbicort, and albuterol. Pulm referral. (3) Back pain: Comment: Compression fractures T5 and T9. Code(s): M54.9 - Dorsalgia, unspecified Category: Medical Plan: - Continue current pain management with naproxen as needed. - Consider Ortho referral if pain is worse. - Check Vit D. (4) Healthcare maintenance: Code(s): Z00.00 - Encounter for general adult medical examination without abnormal findings Category: Medical Plan: CBC, CMP, Lipid panel, A1C, TSH w T4, vit D. Ordered today. Tdap given today. Patient reports completing COVID. 2 shots. Patient will get the flu vaccine from retail pharmacy. Colonoscopy: 45-75. at 45. AAA: NI Ct lung: NI PSA: NI HIV: Ordered today. HBV: Ordered today. HCV: Ordered today. (5) Migraine: Code(s): G43.909 - Migraine, unspecified, not intractable, without status migrainosus Category: Medical Plan: Excedrin, tylenol and ibuprofen. Consider Neurology referral if symptoms do not improve. (6) Knee pain: Code(s): M25.569 - Pain in unspecified knee Category: Medical Plan: Knee X- ray to rule out any fractures. (7) Allergy: Code(s): T78.40XA - Allergy, unspecified, initial encounter Category: Medical Plan: Continue Zyrtec. Consider shipping and receiving specialist if symptoms are severe. (8) Thrombocytopenia: Code(s): D69.6 - Thrombocytopenia, unspecified Category: Medical Plan: Most likely ITP. Repeat labs ordered today. Plan During the visit, we discussed the management of the patient's chronic conditions, including back pain, headaches, asthma, allergies, and knee pain. I recommended continuing current medications and considering imaging for knee pain if symptoms persist. We also discussed the option of receiving a vaccine during the visit. Orders: Orders Td Immunization Today Z23 - Encounter for immunization Hemoglobin A1c Today Z00.00 - Encounter for general adult medical examination without abnormal findings HIV Ab/Ag Today Z00.00 - Encounter for general adult medical examination without abnormal findings Hepatitis B Surface Antibody Today Z00.00 - Encounter for general adult medical examination without abnormal findings Hepatitis B Surface Antigen Today Z00.00 - Encounter for general adult medical examination without abnormal findings TSH reflex Free T4 Today Z00.00 - Encounter for general adult medical examination without abnormal findings XR Knee Guevara 1or 2V Today Z00.00 - Encounter for general adult medical examination without abnormal findings Complete Blood Count no Diff Today Z00.00 - Encounter for general adult medical examination without abnormal findings Lipid Panel Today Z00.00 - Encounter for general adult medical examination without abnormal findings Hepatitis B Core Antibody Today Z00.00 - Encounter for general adult medical examination without abnormal findings Comprehensive Met. Panel Today Z00.00 - Encounter for general adult medical examination without abnormal findings Vitamin D 1,25 dihydroxy Today Z00.00 - Encounter for general adult medical examination without abnormal findings Referrals Pulmonology Referral Z00.00 - Encounter for general adult medical examination without abnormal findings Medications: New albuterol sulfate 90 mcg/actuation (Ventolin HFA) 1 inh inhalation QID PRN 8.5 grams 3RF shortness of breath or wheezing cetirizine (Zyrtec) 10 mg PO DAILY PRN 90 caps 3RF allergy symptoms ncihdwd-fufzmsojkoaxs-egsugwjb 250-250-65 mg (Excedrin Migraine) 1 tab PO Q4-6H PRN 90 tabs 3RF pain
[2025-03-03 12:53] VITALS: BP 120/64; PULSE 75; TEMP 36.2; O2SAT 98; BMI 19.5
== END 2025-03-03 13:35 | disposition home or self-care (01) ==
LOC: HO.HMCH 12:46
PROVIDERS: Visit Provider Internal Medicine
DX: J98.19 Other pulmonary collapse (principal); J45.909 Unspecified asthma, uncomplicated; M54.9 Dorsalgia, unspecified; Z00.00 Encounter for general adult medical examination without abnormal findings; G43.909 Migraine, unspecified, not intractable, without status migrainosus; M25.569 Pain in unspecified knee; T78.40XA Allergy, unspecified, initial encounter; D69.6 Thrombocytopenia, unspecified; Z23 Encounter for immunization

== ENCOUNTER → 2025-03-03 12:45 | Outpatient (BNVA) | payer OTHER, SELFPAY | PROVIDERS: Visit Provider Internal Medicine | DX: Z00.00 Encounter for general adult medical examination without abnormal findings (principal); J98.19 Other pulmonary collapse; J45.909 Unspecified asthma, uncomplicated; M54.9 Dorsalgia, unspecified; G43.909 Migraine, unspecified, not intractable, without status migrainosus; M25.569 Pain in unspecified knee; T78.40XA Allergy, unspecified, initial encounter; D69.6 Thrombocytopenia, unspecified; Z23 Encounter for immunization; Z79.899 Other long term (current) drug therapy | CPT/HCPCS: 90471; 90714; 99395 ==

== ENCOUNTER 2025-03-04 08:55 | Outpatient (REF) | payer OTHER, SELFPAY ==
[2025-03-04 09:57] LABS: Hematocrit 42.0 % (42.0-52.0); Hemoglobin 14.5 g/dl (14.0-18.0); Mean Corpuscular HGB Conc 34.5 g/dl (31.0-36.0); Mean Corpuscular Hemoglobin 27.9 pg (27.0-33.0); Mean Corpuscular Volume 80.9 fL (80.0-98.0); NRBC Abs Auto 0.000 X10*3/uL (0.0-0.012); NRBC Pct Auto 0.0 /100WBC (0.0-0.2); Platelet Count 164 X10*3/uL (160-400); Red Blood Count 5.19 X10*6/uL (4.60-5.80); White Blood Count 6.7 X10*3/uL (4.8-10.8)
[2025-03-04 10:41] LABS: Alanine Aminotransferase 14 U/L (0-40); Albumin Level 4.9 g/dL (3.5-5.0); Alkaline Phosphatase 54 U/L (39-117); Anion Gap 11 (12-20); Aspartate Amino Transferase 22 U/L (5-37); Blood Urea Nitrogen 14 mg/dL (9-16); Calcium 9.5 mg/dL (8.4-10.2); Carbon Dioxide 29 mmol/L (22-29); Chloride 106 mmol/L (96-108); Cholesterol 146 mg/dL (<200); Estimated Glomerular Filt Rate > 60; HDL Cholesterol 38 mg/dL (>40); Potassium 3.8 mmol/L (3.3-5.1); Sodium 142 mmol/L (135-145); Total Protein 7.2 g/dL (6.5-8.0); Triglycerides 129 mg/dL (<150)
[2025-03-04 10:44] LABS: HBS Num1 93.11 mIU/mL (0-7.99); HBc Num1 0.05 S/CO (0.00-0.79); HBsAGNum1 0.39 S/CO (0.00-0.99); HIV Num 1 0.05 S/CO (0.00-0.99); Hepatitis B Surface Antigen Negative (Negative); ~Hepatitis B Surface Antibody REACTIVE (Nonreactive)
[2025-03-08 17:34] LABS: VITAMIN D (1,25 OH) D3 29 pg/mL; Vit D (1,25-Dihydroxy) Total 29 pg/mL (18-72); Vitamin D (1,25 OH) D2 <8 pg/mL
== END 2025-03-04 08:56 | disposition home or self-care (01) ==
LOC: HO.LAB 08:55
PROVIDERS: PCP Internal Medicine; Visit Provider Internal Medicine
DX: Z00.00 Encounter for general adult medical examination without abnormal findings (principal); Z11.4 Encounter for screening for human immunodeficiency virus [HIV]; Z11.59 Encounter for screening for other viral diseases
CPT/HCPCS: 36415; 80053; 80061; 82652; 83036; 84443; 85027; 86704; 86706; 87340; 87389